=== PATIENT | male | born 1975 | race Asian ===

== ENCOUNTER 2016-07-31 22:37 | Emergency (ER) | payer OTHER, MEDICAID ==
[2016-07-31 22:49] VITALS: BP 100/56
--- NOTE | 2016-07-31 23:48 | ED Physician Documentation ---
PD HPI HEAD INJURY - Stated complaint Stated Complaint: RT EYE LACERATION - Chief complaint Chief Complaint: Laceration - History obtained from History obtained from: Patient - History of Present Illness Mechanism of head injury: Laceration (Ran into a corner of a wall at work just [employer] and has a lac in R eyebrow. No LOC/Headache. tetanus is utd.) Review of Systems Constitutional: denies: Fever, Chills Eyes: denies: Loss of vision, Decreased vision Ears: denies: Loss of hearing, Ear pain Nose: denies: Rhinorrhea / runny nose, Congestion PD PAST MEDICAL HISTORY - Past Medical History GI: Ulcers Psych: Depression - Past Surgical History Past Surgical History: No - Present Medications Home Medications: Ambulatory Orders Medication Instructions Recorded Confirmed Acyclovir 800 mg PO QID #20 tablet 08/03/15 Dexamethasone [Decadron] 4 mg PO DAILY #5 tablet 08/03/15 Gabapentin [Neurontin] 100 mg PO BID #15 capsule 08/03/15 Tramadol HCl 50 mg PO Q6H PRN #20 tablet 08/03/15 Albuterol Sulfate [Proair Hfa 2 puffs IH QID #1 hfa.aer.ad 12/14/15 Inhaler] Benzonatate [Tessalon] 100 mg PO TID PRN #25 capsule 12/14/15 Dexamethasone [Decadron] 4 mg PO DAILY #5 tablet 12/14/15 Ondansetron HCl [Zofran] 4 mg PO Q6H PRN #20 tablet 12/14/15 - Allergies Allergies/Adverse Reactions: Allergies Allergy/AdvReac Type Severity Reaction Status Date / Time No Known Drug Allergies Allergy Verified 12/09/14 14:22 - Social History Does the pt smoke?: Yes Smoking Status: Current every day smoker Does the pt drink ETOH?: No Does the pt have substance abuse?: Yes - Immunizations Immunizations are current?: Yes - POLST Patient has POLST: No PD ED PE NORMAL - Vitals Vital signs reviewed: Yes - General General: Alert and oriented X 3, No acute distress - HEENT HEENT: PERRL, EOMI, Other (1cm shallow oblique lac in lateral L eyebrow) - Neck Neck: Supple, no meningeal sign, No bony TTP - Neuro Neuro: Alert and oriented X 3, tallow refiner 2-12 intact, No motor deficit, No sensory deficit, Normal speech - Psych Psych: Normal mood, Normal affect Results - Vitals Vitals: Vital Signs - 24 hr 07/31/16 22:48 Temperature 36.7 C Heart Rate 88 Respiratory 18 Rate Blood Pressure 100/56 L O2 Saturation 100 Oxygen O2 Source Room air Procedures - Laceration (location) face Length in cm: 1 Wound type: Linear Wound Preparation: Irrigated copiously NS Skin layer closure: Dermabond Other: Tetanus UTD Complexity: Simple Departure - Departure Disposition: 01 Home, Self Care Clinical Impression: Laceration Condition: Good Record reviewed to determine appropriate education?: Yes Instructions: ED Laceration Facial Skin Glue
== END 2016-08-01 00:01 | disposition home or self-care (01) ==
LOC: ED 22:37
DX: S01.111A Laceration without foreign body of right eyelid and periocular area, initial encounter (principal); W22.8XXA Striking against or struck by other objects, initial encounter; Y99.0 Civilian activity done for income or pay; F17.200 Nicotine dependence, unspecified, uncomplicated
CPT/HCPCS: 1040M; 12011; 99282; 99283

== ENCOUNTER 2016-08-29 22:02 | Emergency (ER) | payer MEDICAID ==
[2016-08-29 22:07] VITALS: BP 111/69
--- NOTE | 2016-08-29 22:53 | ED Physician Documentation ---
PD HPI UPPER EXT INJURY - Stated complaint Stated Complaint: LT INDEX LAC - Chief complaint Chief Complaint: Laceration - History obtained from History obtained from: Patient, Family - History of Present Illness Location: Left, Finger (index) Type of injury: Laceration Where injury occurred: Home Timing - onset: Last night Timing - duration: Days (1) Timing - details: Abrupt onset, Still present Improved by: Rest, Immobilization Worsened by: Moving, Palpating, Other (the wound started bleeding again after showering) Associated symptoms: No: Weakness, Numbness, Tingling, Swelling Similar symptoms before: Diagnosis (laceration) Recently seen: Emergency Dept (for a laceration) - Additonal information Additional information: 41 y/o male sliced his left index fingertip last night with a superficial flap that went into the nail and he was able to treat this last night with a bandaid. Review of Systems Constitutional: denies: Fever Nose: denies: Congestion Respiratory: denies: Cough GI: denies: Vomiting Skin: reports: Laceration (s). denies: Rash PD PAST MEDICAL HISTORY - Past Medical History GI: Ulcers Psych: Depression - Past Surgical History Past Surgical History: No - Present Medications Home Medications: Ambulatory Orders Medication Instructions Recorded Confirmed No Known Home Medications [No 08/29/16 08/29/16 Known Home Medications] - Allergies Allergies/Adverse Reactions: Allergies Allergy/AdvReac Type Severity Reaction Status Date / Time No Known Drug Allergies Allergy Verified 12/09/14 14:22 - Social History Does the pt smoke?: Yes Smoking Status: Current every day smoker Does the pt drink ETOH?: No Does the pt have substance abuse?: Yes - Immunizations Immunizations are current?: Yes - POLST Patient has POLST: No PD ED PE NORMAL - Vitals Vital signs reviewed: Yes (normal ) - General General: No acute distress, Well developed/nourished - HEENT HEENT: Atraumatic, PERRL - Respiratory Respiratory: No respiratory distress - Derm Derm: Normal color, Warm and dry, No rash - Extremities Extremities: No deformity, No edema, Other (There is a superficial flap laceration to the lft index finger cuticle that extends into the nail. There is no bleeding currently and the flap is adherd. ) - Neuro Neuro: No motor deficit, No sensory deficit - Psych Psych: Normal mood, Normal affect Results - Vitals Vitals: Vital Signs - 24 hr 08/29/16 22:04 Temperature 36.6 C Heart Rate 85 Respiratory 16 Rate Blood Pressure 111/69 O2 Saturation 99 Oxygen O2 Source Room air PD MEDICAL DECISION MAKING - ED course Complexity details: reviewed old records, considered differential, d/w patient, d/w family ED course: 41 y/o male with an old flap laceration over the cuticle is treated with dermabond and a dressing. Departure - Departure Disposition: 01 Home, Self Care Clinical Impression: Finger laceration Qualifiers: Encounter type: initial encounter Qualified Code(s): S61.219A - Laceration without foreign body of unspecified finger without damage to nail, initial encounter Condition: Stable Instructions: ED Laceration Hand Follow-Up: Genevieve Tatum ARNP [Primary Care Provider] - Comments: protect the finger tip from water and abrasion.
== END 2016-08-29 23:07 | disposition home or self-care (01) ==
LOC: ED 22:02
DX: S61.311A Laceration without foreign body of left index finger with damage to nail, initial encounter (principal); W45.8XXA Other foreign body or object entering through skin, initial encounter; Y92.009 Unspecified place in unspecified non-institutional (private) residence as the place of occurrence of the external cause; F17.200 Nicotine dependence, unspecified, uncomplicated
CPT/HCPCS: 12001; 99282; 99283

== ENCOUNTER 2016-09-04 23:20 | Emergency (ER) | payer MEDICAID ==
[2016-09-04 23:32] VITALS: BP 107/54
--- NOTE | 2016-09-04 23:50 | ED Physician Documentation ---
PD HPI UPPER EXT INJURY - Stated complaint Stated Complaint: LT FIRST FINGER INJURY - Chief complaint Chief Complaint: Wound - History obtained from History obtained from: Patient - History of Present Illness Location: Left, Finger (index finger tip - had been seen after initial injury and had flue/tapes applied. He says he had been keeping it clean and dry, but glue/tapes fell off today when he inadvertently got it wet. No discharge nor signs of infection.) Associated symptoms: No: Weakness, Numbness, Swelling Recently seen: Emergency Dept (days ago, the day after the initial injury. Had glue and steristrips applied.) Review of Systems Constitutional: denies: Fever, Chills PD PAST MEDICAL HISTORY - Past Medical History Past Medical History: Yes GI: Ulcers Psych: Depression - Past Surgical History Past Surgical History: No - Present Medications Home Medications: Ambulatory Orders Medication Instructions Recorded Confirmed No Known Home Medications [No 08/29/16 08/29/16 Known Home Medications] - Allergies Allergies/Adverse Reactions: Allergies Allergy/AdvReac Type Severity Reaction Status Date / Time No Known Drug Allergies Allergy Verified 09/04/16 23:32 - Social History Does the pt smoke?: Yes Smoking Status: Current every day smoker Does the pt drink ETOH?: No Does the pt have substance abuse?: Yes - Immunizations Immunizations are current?: Yes - POLST Patient has POLST: No PD ED PE NORMAL - Vitals Vital signs reviewed: Yes - General General: Alert and oriented X 3, Well developed/nourished - Extremities Extremities: Other (index finger with distal flap lac from tip to proximal nailbed. Flap is in place and no redness/diacharge. ) - Neuro Neuro: No motor deficit, No sensory deficit Results - Vitals Vitals: Vital Signs - 24 hr 09/04/16 23:25 Temperature 36.8 C Heart Rate 101 H Respiratory 18 Rate Blood Pressure 107/54 L O2 Saturation 96 Oxygen O2 Source Room air PD MEDICAL DECISION MAKING - ED course Complexity details: considered differential (flap is still in place. distal end of it, which is the thin end, has harder skin and proximal part has better color /softer. Steri-strips applied with benzoin over the flap. He is here mainly with concern of dressing change and re-applying the steristrips and Dermabond. No signs of infection. ), d/w patient Departure - Departure Disposition: Home, Self Care Clinical Impression: Encounter for re-check of laceration wound Condition: Stable Record reviewed to determine appropriate education?: Yes Comments: Continue current treatment. Keep it clean and dry. Discharge Date/Time: 09/05/16 00:12
== END 2016-09-05 00:12 | disposition home or self-care (01) ==
LOC: ED 23:20
DX: S61.211D Laceration without foreign body of left index finger without damage to nail, subsequent encounter (principal); X58.XXXD Exposure to other specified factors, subsequent encounter; Z87.11 Personal history of peptic ulcer disease; F17.200 Nicotine dependence, unspecified, uncomplicated
CPT/HCPCS: 99282; 99283

== ENCOUNTER 2018-06-10 22:50 | Emergency (ER) | payer MEDICAID ==
[2018-06-11] MEDS ORDERED: ONDANSETRON ODT 4 MG TABLET TL STA (00:15)
[2018-06-11] MEDS ORDERED: SODIUM CHLORIDE 0.9% 1,000 ML IV ONE (00:15)
[2018-06-11] MEDS ORDERED: ACETAMINOPHEN 500 MG TABLET PO STA (00:15)
[2018-06-11] MEDS ORDERED: KETOROLAC 30 MG/ML VIAL IVP STA (00:16)
[2018-06-11] MEDS ORDERED: ONDANSETRON 4 MG/2 ML VIAL IVP STA (00:17)
--- NOTE | 2018-06-11 01:03 | ED Physician Documentation ---
PD HPI URI - Stated complaint Stated Complaint: VOMITING - Chief complaint Chief Complaint: Abd Pain - History obtained from History obtained from: Patient - History of Present Illness Timing - onset: How many days ago (2) Timing duration: Days (2) Timing details: Gradual onset Pain level max: 2 Pain level now: 2 Severity Comments: mild Associated symptoms: Fever, Chills, Nasal congestion, Rhinorrhea, Dry cough Contributing factors: Sick contact Improves by: Medication Worsened by: No: Activity, Breathing Review of Systems Ten Systems: 10 systems reviewed and negative Constitutional: reports: Reviewed and negative Eyes: reports: Reviewed and negative Ears: reports: Reviewed and negative Nose: reports: Reviewed and negative Throat: reports: Reviewed and negative Cardiac: reports: Reviewed and negative Respiratory: reports: Reviewed and negative GI: reports: Reviewed and negative : reports: Reviewed and negative Skin: reports: Reviewed and negative Musculoskeletal: reports: Reviewed and negative Neurologic: reports: Reviewed and negative Psychiatric: reports: Reviewed and negative Endocrine: reports: Reviewed and negative Immunocompromised: reports: Reviewed and negative PD PAST MEDICAL HISTORY - Past Medical History Past Medical History: No GI: Ulcers Psych: Depression Other Past Medical History: Reviewed and not pertinent - Past Surgical History Past Surgical History: No Derm: Other (Reviewed and not pertinent) - Present Medications Home Medications: Ambulatory Orders Medication Instructions Recorded Confirmed Ondansetron Odt [Zofran] 4 mg TL Q6H PRN #10 tablet 06/11/18 - Allergies Allergies/Adverse Reactions: Allergies Allergy/AdvReac Type Severity Reaction Status Date / Time No Known Drug Allergies Allergy Verified 06/10/18 23:06 - Social History Does the pt smoke?: Yes Smoking Status: Current every day smoker Does the pt drink ETOH?: No Does the pt have substance abuse?: Yes - Family History Family history: reports: Other (Reviewed and not pertinent) - Immunizations Immunizations are current?: Yes - POLST Patient has POLST: No PD ED PE NORMAL - Vitals Vital signs reviewed: Yes - General General: Alert and oriented X 3, No acute distress - HEENT HEENT: PERRL - Neck Neck: Supple, no meningeal sign - Cardiac Cardiac: RRR, No murmur - Respiratory Respiratory: Clear bilaterally - Abdomen Abdomen: Normal bowel sounds, Soft, Non tender, Non distended - Derm Derm: Warm and dry - Extremities Extremities: No deformity - Neuro Neuro: Alert and oriented X 3 - Psych Psych: Normal mood, Normal affect Results - Vitals Vitals: Vital Signs - 24 hr 06/10/18 23:03 Temperature 37.0 C Heart Rate 84 Respiratory 20 Rate Blood Pressure 117/67 O2 Saturation 99 Oxygen O2 Source Room air - Labs Labs: Laboratory Tests 06/11/18 00:25 Influenza A (Rapid) Negative Influenza B (Rapid) Negative PD MEDICAL DECISION MAKING - ED course Complexity details: reviewed results, re-evaluated patient, considered differential, d/w patient ED course: 43-year-old male with nausea, vomiting, upper respiratory symptoms. Flu negative. Treated symptomatically and discharged with prescription for Zofran. Departure - Departure Disposition: Home, Self Care Clinical Impression: Vomiting Qualifiers: Vomiting type: unspecified Vomiting Intractability: non-intractable Nausea presence: with nausea Qualified Code(s): R11.2 - Nausea with vomiting, unspecified Upper respiratory infection Qualifiers: URI type: unspecified viral URI Qualified Code(s): J06.9 - Acute upper respiratory infection, unspecified Condition: Stable Instructions: ED Nausea Vomiting, ED URI Viral Follow-Up: Genevieve Tatum ARNP [Primary Care Provider] - Prescriptions: Ondansetron Odt [Zofran] 4 mg TL Q6H PRN #10 tablet PRN Reason: Nausea / Vomiting Comments: For symptoms take 1000 mg Tylenol and 800 mg ibuprofen 3 times daily in addition to Zyrtec-D twice daily, Afrin every 3-5 hours for up to 3-5 days, stay hydrated with water, sports drinks, soup. Follow-up with PCP within 24 hours. Return with worsening symptoms.
[2018-06-11 01:15] VITALS: BP 105/80
== END 2018-06-11 01:18 | disposition home or self-care (01) ==
LOC: ED 22:50
DX: R11.2 Nausea with vomiting, unspecified (principal); J06.9 Acute upper respiratory infection, unspecified; F17.200 Nicotine dependence, unspecified, uncomplicated
CPT/HCPCS: 87275; 87276; 96374; 99283; A9270

== ENCOUNTER 2019-02-08 22:17 | Emergency (ER) | payer MEDICAID ==
[2019-02-08 22:24] VITALS: BP 109/67
[2019-02-08] MEDS ORDERED: AMOX/CLAV 875 MG/125 MG TABLET PO STA (22:29)
--- NOTE | 2019-02-08 22:29 | ED Physician Documentation ---
PD HPI WOUND RECHECK - Stated complaint Stated Complaint: FINGER PX - Chief complaint Chief Complaint: Wound - Histroy obtained from History obtained from: Patient - History of Present Illness Location: Right Upper Extremity (Painful swelling of the proximal part of the right index finger for the last couple of days without clear trauma. He does work at a restaurant, he does occasionally need to wash dishes. No fevers.) Review of Systems Constitutional: reports: Reviewed and negative Ears: reports: Reviewed and negative Nose: reports: Reviewed and negative PD PAST MEDICAL HISTORY - Past Medical History Past Medical History: Yes GI: Ulcers Psych: Depression - Past Surgical History Past Surgical History: No Derm: Other - Present Medications Home Medications: Ambulatory Orders Medication Instructions Recorded Confirmed Ondansetron Odt [Zofran] 4 mg TL Q6H PRN #10 tablet 06/11/18 Amox/Clav 875/125 [Augmentin] 1 each PO Q12H #14 tablet 02/08/19 - Allergies Allergies/Adverse Reactions: Allergies Allergy/AdvReac Type Severity Reaction Status Date / Time No Known Drug Allergies Allergy Verified 02/08/19 22:24 - Social History Does the pt smoke?: Yes Smoking Status: Current every day smoker Does the pt drink ETOH?: No Does the pt have substance abuse?: Yes - Immunizations Immunizations are current?: Yes - POLST Patient has POLST: No PD ED PE NORMAL - Vitals Vital signs reviewed: Yes - General General: Alert and oriented X 3, No acute distress - Extremities Extremities: Other (He has a purulent paronychia of the right second finger) - Neuro Neuro: Alert and oriented X 3, Normal speech Results - Vitals Vitals: Vital Signs - 24 hr 02/08/19 02/08/19 22:20 22:40 Temperature 36.3 C L Heart Rate 68 Respiratory 16 16 Rate Blood Pressure 109/67 O2 Saturation 100 Oxygen O2 Source Room air Procedures - General procedure General procedure: Using a cotton swab the paronychia which was quite ripe was lifted off the nail bed and all the pus was retrieved. Departure - Departure Disposition: 01 Home, Self Care Clinical Impression: Paronychia Condition: Good Record reviewed to determine appropriate education?: Yes Instructions: ED Fingernail Infec Prescriptions: Amox/Clav 875/125 [Augmentin] 1 each PO Q12H #14 tablet Discharge Date/Time: 02/08/19 22:40
== END 2019-02-08 22:40 | disposition home or self-care (01) ==
LOC: ED 22:17
DX: L03.011 Cellulitis of right finger (principal); F17.200 Nicotine dependence, unspecified, uncomplicated
CPT/HCPCS: 99282; 99283; A9270

== ENCOUNTER 2019-07-07 10:23 | Emergency (ER) | payer MEDICAID ==
[2019-07-07 10:42] VITALS: BP 105/70
--- NOTE | 2019-07-07 11:15 | ED Physician Documentation ---
History of Present Illness - Stated complaint Stated Complaint: R HAND FINGER PX - Chief complaint Chief Complaint: Ext Problem - History obtained from History obtained from: Patient (44-year-old male chief complaint of painful swelling to the right index finger, nailbed. This occurred several months ago. Was cleared up with antibiotics and drainage. Patient states he drained it this morning. 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.) - History of Present Illness Timing: How many weeks ago (1) Review of Systems Eyes: reports: Reviewed and negative Ears: reports: Reviewed and negative Nose: reports: Reviewed and negative Cardiac: reports: Reviewed and negative PD PAST MEDICAL HISTORY - Past Medical History Cardiovascular: None Respiratory: None Neuro: None Endocrine/Autoimmune: None GI: Ulcers : None HEENT: Chronic vision loss Psych: Depression Musculoskeletal: None Derm: None - Past Surgical History Past Surgical History: No Derm: Other - Present Medications Home Medications: Ambulatory Orders Medication Instructions Recorded Confirmed Amox/Clav 875/125 [Augmentin] 1 each PO Q12H #14 tablet 07/07/19 - Allergies Allergies/Adverse Reactions: Allergies Allergy/AdvReac Type Severity Reaction Status Date / Time No Known Drug Allergies Allergy Verified 07/07/19 10:42 - Social History Does the pt smoke?: Yes Smoking Status: Current every day smoker Does the pt drink ETOH?: No Does the pt have substance abuse?: No - Immunizations Immunizations are current?: Yes - POLST Patient has POLST: No PD ED PE NORMAL - General General: Alert and oriented X 3, No acute distress, Well developed/nourished - Extremities Extremities: Other (Nonpurulent paronychia to the right index finger) Results - Vitals Vitals: Vital Signs - 24 hr 07/07/19 10:32 Temperature 36.7 C Heart Rate 60 Respiratory 14 Rate Blood Pressure 105/70 O2 Saturation 98 Oxygen O2 Source Room air Procedures - General procedure General procedure: Patient's finger was cleaned with alcohol swab, pressure was applied to the paronychia base at the DIP, minimal pus was drained out. Departure - Departure Disposition: 01 Home, Self Care Clinical Impression: Paronychia of finger Qualifiers: Laterality: right Qualified Code(s): L03.011 - Cellulitis of right finger Condition: Good Instructions: ED Fingernail Infec Prescriptions: Amox/Clav 875/125 [Augmentin] 1 each PO Q12H #14 tablet
== END 2019-07-07 11:21 | disposition home or self-care (01) ==
LOC: ED 10:23
DX: L03.011 Cellulitis of right finger (principal); F17.200 Nicotine dependence, unspecified, uncomplicated
CPT/HCPCS: 10060

== ENCOUNTER 2020-07-11 07:00 | Outpatient (CLI) | payer MEDICAID ==
--- NOTE | 2020-07-11 15:58 | XRAY Report ---
PROCEDURE: Chest 2 View X-Ray INDICATIONS: POSITIVE PPD TECHNIQUE: 2 view(s) of the chest. COMPARISON: None. FINDINGS: Surgical changes and devices: None. Lungs and pleura: No pleural effusions or pneumothorax. Lungs are clear. Mediastinum: Mediastinal contours are normal. Heart size is normal. Bones and chest wall: No suspicious bony abnormalities. Soft tissues appear unremarkable. IMPRESSION: No acute process. Reviewed by: Duarte Talbert MD on 07/11/2020 3:57 PM PDT Approved by: Duarte Talbert MD on 07/11/2020 3:57 PM PDT Station ID: [id number]
== END 2020-07-11 23:59 | disposition home or self-care (01) ==
LOC: DI.N 07:00
PROVIDERS: ATTEND Family Medicine
DX: R76.11 Nonspecific reaction to tuberculin skin test without active tuberculosis (principal)

== ENCOUNTER 2020-09-30 19:35 | Emergency (ER) | payer MEDICAID ==
[2020-09-30 19:45] VITALS: BP 97/66
[2020-09-30] MEDS ORDERED: NEOMYCIN/POLYMYX/DEXAMETH OPHTH DROPS 5 ML RIGHTEYE STA (20:43)
--- NOTE | 2020-09-30 20:46 | ED Physician Documentation ---
PD HPI OPHTHO - Stated complaint Stated Complaint: RT EYE SWELLING - Chief complaint Chief Complaint: Heent - History obtained from History obtained from: Patient - History of Present Illness Timing - onset: How many days ago (3) Timing - duration: Days (3) Timing - details: Gradual onset, Still present Location: Right Quality / character: Itching, Aching, Throbbing Associated symptoms: Redness, Swelling. No: FB sensation, Photophobia, Double vision, Decreased vision, Loss of vision, Headache Similar symptoms before: Has not had sx before Recently seen: Not recently seen - Additional information Additional information: 45-year-old male previously well has developed some swelling to his right lower eyelid it has been bothering him for about 3 days it has become worse and last n ight even had a hard time sleeping with this. Is quite uncomfortable with it it has not affected his vision. He has not had this previously. He has not been recently ill. Review of Systems Constitutional: denies: Fever Eyes: reports: Irritation. denies: Loss of vision, Decreased vision, Photophobia, Discharge Ears: denies: Ear pain Nose: denies: Congestion Throat: denies: Sore throat Respiratory: denies: Cough GI: denies: Vomiting, Diarrhea PD PAST MEDICAL HISTORY - Past Medical History Cardiovascular: None Respiratory: None Neuro: None Endocrine/Autoimmune: None GI: Ulcers : None HEENT: Chronic vision loss Psych: Depression Musculoskeletal: None Derm: None - Past Surgical History Past Surgical History: No Derm: Other - Present Medications Home Medications: Ambulatory Orders Medication Instructions Recorded Confirmed Neomycin/Poly/Dex Ophth Drops 1 drops RIGHTEYE QID #5 ml 09/30/20 [Maxitrol Ophth Drops] - Allergies Allergies/Adverse Reactions: Allergies Allergy/AdvReac Type Severity Reaction Status Date / Time No Known Drug Allergies Allergy Verified 09/30/20 19:45 - Social History Does the pt smoke?: Yes Smoking Status: Current every day smoker Does the pt drink ETOH?: No Does the pt have substance abuse?: No - Immunizations Immunizations are current?: Yes - POLST Patient has POLST: No PD ED PE NORMAL - Vitals Vital signs reviewed: Yes - General General: Alert and oriented X 3, No acute distress, Well developed/nourished - HEENT HEENT: Atraumatic, PERRL, EOMI (Normal), Other (To the right lower lid there is a stye in the middle portion of the lid there is some surrounding erythema and no discharge.) - Neck Neck: Supple, no meningeal sign, No bony TTP - Cardiac Cardiac: RRR, No murmur - Respiratory Respiratory: No respiratory distress, Clear bilaterally - Derm Derm: Normal color, Warm and dry, No rash - Extremities Extremities: No deformity, No edema - Neuro Neuro: Alert and oriented X 3, carton marker machine 2-12 intact, No motor deficit, No sensory d eficit, Normal speech Eye Opening: Spontaneous Motor: Obeys Commands Verbal: Oriented GCS Score: 15 - Psych Psych: Normal mood, Normal affect Results - Vitals Vitals: Vital Signs - 24 hr 09/30/20 19:41 Temperature 37.1 C Heart Rate 79 Respiratory 16 Rate Blood Pressure 97/66 O2 Saturation 100 Oxygen O2 Source Room air PD MEDICAL DECISION MAKING - ED course Complexity details: reviewed old records, considered differential, d/w patient ED course: 45-year-old male with a stye to the right eye appears to have a simple and straightforward condition. He is administered Maxitrol ophthalmic drops and instructed to use a warm compress. The expectation is resolution. Departure - Departure Disposition: 01 Home, Self Care Clinical Impression: Hordeolum of right eye Qualifiers: Hordeolum type: internum Eyelid: lower Qualified Code(s): H00.022 - Hordeolum internum right lower eyelid Condition: Stable Instructions: ED [place] Follow-Up: [facility] [Provider Group] Prescriptions: Neomycin/Poly/Dex Ophth Drops [Maxitrol Ophth Drops] 1 drops RIGHTEYE QID #5 ml Discharge Date/Time: 09/30/20 21:00
== END 2020-09-30 21:00 | disposition home or self-care (01) ==
LOC: ED 19:35
DX: H00.022 Hordeolum internum right lower eyelid (principal); F17.200 Nicotine dependence, unspecified, uncomplicated
CPT/HCPCS: 99282; 99283; J3490

== ENCOUNTER 2021-10-15 13:29 | Emergency (ER) | payer MEDICAID, OTHER ==
[2021-10-15 14:03] VITALS: BP 99/57
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
--- NOTE | 2021-10-15 14:57 | XRAY Report ---
PROCEDURE: Foot 3 View RT INDICATIONS: Trauma TECHNIQUE: 3 views of the foot were acquired. COMPARISON: None FINDINGS: Bones: No fractures or dislocations. No suspicious bony lesions. Soft tissues: No tibiotalar joint effusion. Achilles tendon appears normal. IMPRESSION: No evidence acute bony abnormality of the right foot. Reviewed by: Itz Norman MD on 10/15/2021 1:55 PM [facility] Approved by: Itz Norman MD on 10/15/2021 1:55 PM [facility] Station ID: [id number]
== END 2021-10-15 15:43 | disposition home or self-care (01) ==
LOC: ED 13:29
DX: S97.81XA Crushing injury of right foot, initial encounter (principal); Y09 Assault by unspecified means; F17.200 Nicotine dependence, unspecified, uncomplicated
CPT/HCPCS: 99282; 99283

== ENCOUNTER 2021-12-12 11:16 | Emergency (ER) | payer OTHER, MEDICAID ==
[2021-12-12] MEDS ORDERED: BUFFERED LIDOCAINE 10 ML SYRINGE SUBQ STA (11:26)
--- NOTE | 2021-12-12 11:49 | ED Physician Documentation ---
PD HPI UPPER EXT INJURY - Stated complaint Stated Complaint: LT FINGER LAC - Chief complaint Chief Complaint: Laceration - History obtained from History obtained from: Patient - Additonal information Additional information: Right-handed gentleman who did not know his tetanus status but review of the chart shows it was in 2016 cut his left index finger while cutting [employer] at work just prior to arrival. Review of Systems Constitutional: reports: Reviewed and negative Cardiac: reports: Reviewed and negative Respiratory: reports: Reviewed and negative PD PAST MEDICAL HISTORY - Past Medical History Cardiovascular: None Respiratory: None Neuro: None Endocrine/Autoimmune: None GI: Ulcers : None HEENT: Chronic vision loss Psych: Depression Musculoskeletal: None Derm: None - Past Surgical History Past Surgical History: No Derm: Other - Present Medications Home Medications: Ambulatory Orders Medication Instructions Recorded Confirmed Neomycin/Poly/Dex Ophth Drops 1 drops RIGHTEYE QID #5 ml 09/30/20 [Maxitrol Ophth Drops] Cyclobenzaprine [Flexeril] 10 mg PO TID PRN #20 tablet 06/21/21 Ibuprofen [Motrin] 600 mg PO Q6H PRN #30 tab 06/21/21 Bacitracin Zinc Oint 1 applic TOP BID #1 each 12/12/21 HYDROcod/ACETAM 5/325 [[place] 5/325] 1 - 2 tab PO Q6H PRN #15 tablet 12/12/21 - Allergies Allergies/Adverse Reactions: Allergies Allergy/AdvReac Type Severity Reaction Status Date / Time No Known Drug Allergies Allergy Verified 12/12/21 11:22 - Social History Does the pt smoke?: Yes Smoking Status: Current every day smoker Does the pt drink ETOH?: No Does the pt have substance abuse?: No - Immunizations Immunizations are current?: Yes - POLST Patient has POLST: No PD ED PE NORMAL - Vitals Vital signs reviewed: Yes - General General: Alert and oriented X 3, No acute distress - Extremities Extremities: Other (3 cm curved flap laceration on the dorsum of the left second finger running proximally along the radial side and then curving and going against distal on the dorsal ulnar side. No distal neurovascular compromise.) - Neuro Neuro: Alert and oriented X 3, Normal speech Results - Vitals Vitals: Vital Signs - 24 hr 12/12/21 12/12/21 11:18 12:28 Temperature 36.2 C L Heart Rate 88 74 Respiratory 16 16 Rate Blood Pressure 104/74 110/78 O2 Saturation 99 99 Oxygen O2 Source Room air Procedures - Laceration (location) L 2nd finger Length in cm: 3 Wound type: Curved, Into subcut fat Neurovascular status: Sensory intact, Motor intact, Vascular intact Anesthesia: Lidocaine 1%, With bicarb Wound preparation: Irrigated copiously NS Skin layer closure: Nylon, Interrupted, Size #-0 - enter number (4-0), Sutures - enter # (22) Other: Patient tolerated well, No complications, Neurovascular intact, Tetanus UTD Departure - Departure Disposition: Home, Self Care Clinical Impression: Finger laceration Condition: Good Record reviewed to determine appropriate education?: Yes Instructions: ED Laceration Hand Prescriptions: Bacitracin Zinc Oint 1 applic TOP BID #1 each HYDROcod/ACETAM 5/325 [[place] 5/325] 1 - 2 tab PO Q6H PRN #15 tablet PRN Reason: Pain Comments: [facility] [place] Come back for any signs of infection which would include: Redness, swelling, drainage, increased pain, or fevers. You can wash it soap and water. Keep it covered and moist with bacitracin ointment which is available over the counter; avoid neosporin. Follow-up with your physician in About 14 days for suture removal. I am prescribing a short course of narcotic pain medication for you. These are potentially dangerous and addictive medications that should be used carefully. These medications may constipate you. Take an [id number]-[id number] stool softener (docusate) twice daily with plenty of water while taking these medications. If you go 24 hours without a bowel movement, take [id number] miralax, per package instructions. Do not drink or drive while taking these medications. If you received narcotic or sedating medications while in the emergency department, do not drive for 24 hours. Store this medication in a safe, secure place and out of reach of children. It is a violation of federal law to give or sell this medication to another person or to use in a manner other than prescribed. The ED will not refill narcotic prescriptions, including prescriptions lost or stolen. To dispose of unwanted medications: 1. [facility] [address] in [place] has a medication drop box. They accept prescription medications (in pill form) Saturday through Saturday 9:00 a.m. to 5:00 p.m. 2. [facility] accepts prescription medications (in pill form only) for disposal year round. Call for more information. 3. Contact the [facility] for the next [facility] sponsored prescription drug collection event. , [phone], or [phone]; Note that many narcotic pain relievers also contain Tylenol/acetaminophen. Please ensure that your total dose of acetaminophen from all sources does not exceed 3 g (3000 mg) per day. Forms: Activity restrictions Discharge Date/Time: 12/12/21 12:29
[2021-12-12 12:29] VITALS: BP 110/78
== END 2021-12-12 12:29 | disposition home or self-care (01) ==
LOC: ED 11:16
DX: S61.211A Laceration without foreign body of left index finger without damage to nail, initial encounter (principal); W45.8XXA Other foreign body or object entering through skin, initial encounter; Y93.G1 Activity, food preparation and clean up; Y92.511 Restaurant or cafe as the place of occurrence of the external cause; Y99.0 Civilian activity done for income or pay; F17.200 Nicotine dependence, unspecified, uncomplicated
CPT/HCPCS: 12002; 99283